=== PATIENT | male | born 1955 | race Caucasian/White ===

== ENCOUNTER 2016-08-18 18:33 | Emergency (ER) | payer OTHER, SELFPAY ==
[2016-08-18 19:52] LABS: BASOPHIL 0.3 % (0-2); EOSINOPHIL 1.4 % (0-5); HCT 35.6 % (42.0-52.0); HGB 12.1 g/dl (13.2-18.0); LYMPHOCYTE 8.8 % (15-48); MCH 29.2 pg (25.0-31.0); MONOCYTE 3.6 % (0-12); MPV 10.3 fL (6.0-9.5); NEUTROPHIL 85.9 % (41-80); PLT 131 K/uL (150-400); RBC 4.14 M/uL (4.70-6.00); RDW 14.4 % (11.5-14.0)
[2016-08-18 20:12] LABS: CREATININE 1.1 mg/dL (0.7-1.2); POTASSIUM 4.7 mmol/L (3.5-5.1)
== END 2016-08-18 20:50 | disposition home or self-care (01) ==
LOC: FER 18:33
PROVIDERS: Internal Medicine
DX: S22.41XA Multiple fractures of ribs, right side, initial encounter for closed fracture (principal); R06.02 Shortness of breath; J44.9 Chronic obstructive pulmonary disease, unspecified; K21.9 Gastro-esophageal reflux disease without esophagitis; Z87.09 Personal history of other diseases of the respiratory system; Z88.8 Allergy status to other drugs, medicaments and biological substances; Z79.51 Long term (current) use of inhaled steroids; Z79.82 Long term (current) use of aspirin; Z79.899 Other long term (current) drug therapy
CPT/HCPCS: 36415; 36600; 71101; 71275; 80048; 82803; 84484; 85025; 85379; 93005; 94010; J1170; J1885; J2405; J2930; Q9967

== ENCOUNTER 2021-11-19 02:56 | Emergency (ER) | payer MEDICARE ==
[~2021-11-19 02:56] MED LIST: ANTIVERT25 MG PO; ASPIRIN81 MG PO; BEVESPI AEROS10.7 GM INH; CYCLOBENZAPRINE5 MG PO; DYMISTA NASAL S23 GM PO; EZETIMIBE10 MG PO; FLUOXETINE HCL40 MG PO; OFEV150 MG PO; OMEPRAZOLE40 MG PO; TRAZODONE 100M100 MG PO; VENTOLIN (2.5 MG/3 M INH; VITAMIN D3 PO
[2021-11-19 03:40] LABS: BASOPHIL 0.3 % (0-2); EOSINOPHIL 0.3 % (0-7); HCT 40.3 % (42.0-52.0); HGB 12.8 g/dl (13.2-18.0); LYMPHOCYTE 5.7 % (15-48); MCH 29.4 pg (25.0-31.0); MCHC 31.8 g/dL (32.0-36.0); MCV 92.4 fL (78.0-100.0); MONOCYTE 3.4 % (0-12); NEUTROPHIL 87.6 % (41-80); NRBC 0; PLT 125 K/uL (150-400); RBC 4.36 M/uL (4.70-6.00); RDW 14.8 % (11.5-14.0)
[2021-11-19 04:09] LABS: ALBUMIN 2.9 g/dL (3.4-5.0); BILIRUBIN - TOTAL 0.4 mg/dL (0.2-1.0); BUN/CREAT RATIO (CALC) 21.6 RATIO; CREATININE 0.74 mg/dL (0.67-1.17); GLOBULIN (CALCULATION) 2.9 g/dL; TOTAL PROTEIN 5.8 g/dL (6.4-8.2)
== END 2021-11-19 04:50 | disposition home or self-care (01) ==
LOC: FER 02:56
PROVIDERS: Emergency Medicine
DX: J44.1 Chronic obstructive pulmonary disease with (acute) exacerbation (principal); Z88.8 Allergy status to other drugs, medicaments and biological substances; Z91.048 Other nonmedicinal substance allergy status
CPT/HCPCS: 36415; 71045; 80053; 84484; 85025; 93005; 94640; 94664